=== PATIENT | male | born 1955 | race Caucasian/White ===

== ENCOUNTER 2024-11-22 07:15 | Day surgery (SDC) | payer MEDICARE ==
[2024-11-22] MEDS ORDERED: fentaNYL 250 MCG/5 ML SDV ONE (08:26)
[2024-11-22] MEDS ORDERED: Glycopyrrolate 0.2 MG/ML 5 ML MDV ONE (08:28)
[2024-11-22] MEDS ORDERED: Succinylcholine 200 MG/10 ML MDV ONE (08:28)
[2024-11-22] MEDS ORDERED: Ondansetron 4 MG/2 ML SDV ONE (08:28)
[2024-11-22] MEDS ORDERED: Dexamethasone 4 MG/ML SDV ONE (08:28)
[2024-11-22] MEDS ORDERED: Propofol 200 MG/20 ML SDV ONE ×2 (08:28→10:06)
[2024-11-22] MEDS: Lactated Ringers 1,000 ML IV SCH (08:32)
[2024-11-22] MEDS ORDERED: Midazolam 1 MG/ML 2 ML SDV ONE (09:29)
[2024-11-22] MEDS: Bupivacaine 0.25%/EPINEPHrine 1:200,000 30 ML SDV ONE (10:45)
== END 2024-11-22 11:55 | disposition home or self-care (01) ==
LOC: JP.SDS 07:15
PROVIDERS: ATTEND Surgery
DX: K42.9 Umbilical hernia without obstruction or gangrene (principal); E78.5 Hyperlipidemia, unspecified; Z91.018 Allergy to other foods; Z79.899 Other long term (current) drug therapy
CPT/HCPCS: 00840-QZ; J0330; J0690; J1100; J1596; J2250; J2405; J2704; J2710; J3010; J3490; J7120